=== PATIENT | female | born 1995 | race African-American/Black ===

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

== ENCOUNTER 2018-02-13 12:06 | Emergency (ER) | payer OTHER ==
[2018-02-13 12:30] LABS: URINE HCG POC HCG NEGATIVE (Negative)
[2018-02-13 12:45] LABS: BILIRUBIN,URINE NEGATIVE (NEG); CLARITY,URINE CLEAR; COLOR,URINE YELLOW; GLUCOSE,URINE NEGATIVE (NEG); NITRITE,URINE NEGATIVE (NEG); PH,URINE 6.5; PROTEIN,URINE NEGATIVE (NEG-TRACE)
[2018-02-13 13:12] LABS: BACTERIA,URINE FEW /HPF (0-FEW); RBC,URINE 0 /HPF (0-2); SQUAMOUS EPITHELIAL CELL,UR MANY /LPF
[2018-02-15 14:25] LABS: CHLAMYDIA PROBE Positive (Negative); GC PROBE Negative (Negative)
== END 2018-02-13 15:10 | disposition home or self-care (01) ==
LOC: ER 12:06
DX: N39.0 Urinary tract infection, site not specified (principal); N76.0 Acute vaginitis; B96.89 Other specified bacterial agents as the cause of diseases classified elsewhere
CPT/HCPCS: 76856; 81001; 81025; 87491; 87591; 99285-25; Q0111